=== PATIENT | male | born 1995 | race Caucasian/White ===

== ENCOUNTER 2017-10-13 13:10 | Emergency (ER) | payer SELFPAY ==
[~2017-10-13] VITALS: Ht 167.6 cm; Wt 72.6 kg
[2017-10-13 13:13] VITALS: Ht 167.6 cm; Wt 72.6 kg
[2017-10-13 14:11] LABS: BASOPHIL % 0.3 % (0-2); PLATELET COUNT 208 x10^3mcL (130-400); RED CELL DISTRIBUTION WIDTH 13.8 % (11.5-14.5)
[2017-10-13 14:13] LABS: CARBON DIOXIDE 26.6 mmol/L (21-32); CHLORIDE SERUM 103 mmol/L (98-107); CREATININE SERUM 1.2 mg/dL (0.7-1.3); GFR1 > 60 mL/min; GLUCOSE SERUM 104 mg/dL (74-106); POTASSIUM SERUM 3.5 mmol/L (3.5-5.1); SODIUM SERUM 142 mmol/L (136-145)
[2017-10-13 14:21] LABS: ALBUMIN 4.1 g/dL (3.4-5.0); ALKALINE PHOSPHATASE 99 U/L (46-116); ALT/SGPT 22 U/L (16-63); AST/SGOT 18 U/L (15-37); BILIRUBIN TOTAL 0.3 mg/dL (0.20-1.00)
[2017-10-13 14:23] LABS: TOTAL PROTEIN, SERUM 8.4 g/dL (6.4-8.2)
[2017-10-13 14:27] LABS: UA SPECIFIC GRAVITY >=1.030 (1.005-1.035); microscopic required? YES; urine erythrocyte TRACE (NEGATIVE)
[2017-10-13 14:42] LABS: AMPHETAMINE QUAL UR POSITIVE (NEG <=1000)
[2017-10-13 15:29] VITALS: BP 142/89
== END 2017-10-13 15:29 | disposition other institution (70) ==
LOC: ED 13:10
PROVIDERS: Emergency Medicine
DX: G93.40 Encephalopathy, unspecified (principal); R41.82 Altered mental status, unspecified; T43.625A Adverse effect of amphetamines, initial encounter; Y92.89 Other specified places as the place of occurrence of the external cause
CPT/HCPCS: 99406; G0480; J2310; J7030; Q0092

== ENCOUNTER 2017-10-13 13:10 | Emergency (ER) | payer OTHER | END 2017-10-13 15:29 | disposition other institution (70) | LOC: ED 13:10 | DX: Z02.89 Encounter for other administrative examinations (principal); G93.40 Encephalopathy, unspecified; R41.82 Altered mental status, unspecified; T43.625A Adverse effect of amphetamines, initial encounter; Y92.89 Other specified places as the place of occurrence of the external cause ==

== ENCOUNTER 2017-12-26 00:44 | Emergency (ER) | payer OTHER | END 2017-12-26 03:13 | disposition other institution (70) | LOC: ED 00:44 | DX: Z02.89 Encounter for other administrative examinations (principal) ==

== ENCOUNTER 2017-12-26 00:44 | Emergency (ER) | payer SELFPAY ==
[2017-12-26 03:03] LABS: AMPHETAMINE QUAL UR POSITIVE (NEG <=1000)
[2017-12-26 03:13] VITALS: BP 109/45
== END 2017-12-26 03:13 | disposition other institution (70) ==
LOC: ED 00:44
PROVIDERS: Emergency Medicine
DX: F19.10 Other psychoactive substance abuse, uncomplicated (principal); R11.2 Nausea with vomiting, unspecified
CPT/HCPCS: J2405; J7030; Q0092